=== PATIENT | female | born 1930 | race Caucasian/White ===

== ENCOUNTER 2018-11-05 07:49 | Emergency (ER) | payer MEDICARE ==
--- NOTE | 2018-11-05 08:18 | ERPHSYRPT ---
- History of Present Illness Time Seen by Provider: 11/05/18 08:12 Patient Subjective Stated Complaint: Congestion Triage Nursing Assessment: Patient brought back to ED via w/c and transferred to bed with assist of 1. Patient A+O X 3. Patient's skin flushed, warm and dry. Patient complains of congestion since Wednesday. Patient states she is having a productive cough with thick yellow/green sputum. Patient's lung's clear a/p hiram. Patient denies sob or pain. Physician History: This is an 88-year-old white female with history of high blood pressure, arthritis, irregular heartbeat. She arrives with complaint of a cough congestion symptoms since Wednesday she is not complaining of being short of breath. She has no chest pain no nausea no vomiting She does not have a fever at home. Past medical history blood pressure, arthritis, irregular heartbeat Past surgical history includes cholecystectomy, appendectomy hysterectomy, left knee arthroplasty, tonsillectomy. Social history patient denies tobacco alcohol or illicit drug use Timing/Duration: day(s) (3 days) Severity: moderate Modifying Factors: Improves With: nothing Associated Symptoms: cough, No nausea, No vomiting, No abdominal pain, No shortness of breath, No heartburn, No diaphoresis, No chills, No chest pain, No fever, No headaches, No loss of appetite, No malaise, No rash, No syncope, No seizure, No weakness Allergies/Adverse Reactions: tuberculin, purified protein deriva [Tuberculin,Purif.Prot.Deriv.] Allergy ( Verified 11/05/18 07:53) Home Medications: Aspirin [Baby Aspirin] 81 mg PO DAILY 10/23/12 [History] Calcium Carbonate [Caltrate 600] 600 mg PO BID 10/23/12 [History] Enalapril Maleate 20 mg PO DAILY 10/23/12 [History] Naproxen 500 mg [Naprosyn 500 MG] 500 mg PO BID 10/23/12 [History] Potassium Chloride 10 Meq Tab* [Klor Con 10 MEQ] 10 meq PO DAILY 10/23/12 [ History] Verapamil HCl [Verapamil ER] 120 mg PO DAILY 10/23/12 [History] Hydrochlorothiazide 25 mg [hydroDIURIL 25 MG] 25 mg PO DAILY 10/24/12 [ History] Hx Influenza Vaccination/Date Given: Yes Hx Pneumococcal Vaccination/Date Given: Yes Immunizations Up to Date: Yes - Review of Systems Constitutional: No Fever, No Chills Eyes: No Symptoms Ears, Nose, & Throat: No Symptoms Respiratory: Cough, Other (chest congestion), No Dyspnea Cardiac: No Chest Pain, No Edema, No Syncope Abdominal/Gastrointestinal: No Abdominal Pain, No Nausea, No Vomiting, No Diarrhea Genitourinary Symptoms: No Dysuria Musculoskeletal: No Back Pain, No Neck Pain Skin: No Rash Neurological: No Dizziness, No Focal Weakness, No Sensory Changes Psychological: No Symptoms Endocrine: No Symptoms All Other Systems: Reviewed and Negative - Past Medical History Pertinent Past Medical History: Yes Neurological History: No Pertinent History ENT History: No Pertinent History Cardiac History: Hypertension Respiratory History: No Pertinent History Endocrine Medical History: No Pertinent History Musculoskeletal History: Arthritis GI Medical History: No Pertinent History History: No Pertinent History Psycho-Social History: No Pertinent History Female Reproductive Disorders: No Pertinent History Other Medical History: heart palpitations - Past Surgical History Past Surgical History: Yes Neuro Surgical History: No Pertinent History Cardiac: No Pertinent History Respiratory: No Pertinent History Gastrointestinal: Appendectomy, Cholecystectomy Genitourinary: No Pertinent History Musculoskeletal: Orthopedic Surgery, Prosthesis Female Surgical History: Hysterectomy Other Surgical History: LEFT KNEE, tonsils - Social History Smoking Status: Never smoker How long have you smoked: 20 Exposure to second hand smoke: No Drug Use: none Patient Lives Alone: Yes - Female History Hx Last Menstrual Period: Hysterectomy Hx Now: No - Nursing Vital Signs Nursing Vital Signs: Initial Vital Signs Temperature 100.6 F 11/05/18 07:55 Pulse Rate 110 H 11/05/18 07:55 Respiratory Rate 20 11/05/18 07:55 Blood Pressure 121/86 11/05/18 07:55 O2 Sat by Pulse Oximetry 94 L 11/05/18 07:55 Pain Scale Pain Intensity 0 - Physical Exam General Appearance: no apparent distress, alert Eye Exam: PERRL/EOMI, eyes nml inspection Ears, Nose, Throat Exam: normal ENT inspection, TMs normal, pharynx normal, moist mucous membranes Neck Exam: normal inspection, non-tender, supple, full range of motion Respiratory Exam: normal breath sounds, lungs clear, No respiratory distress Cardiovascular Exam: irregular, capillary refill <2 sec, other (heart irregularly irregular) Gastrointestinal/Abdomen Exam: soft, normal bowel sounds, No tenderness, No mass Back Exam: normal inspection, normal range of motion, No CVA tenderness, No vertebral tenderness Extremity Exam: normal inspection, normal range of motion, pelvis stable Neurologic Exam: alert, oriented x 3, cooperative, shank faker II-XII nml as tested, normal mood/affect, nml cerebellar function, nml station & gait, sensation nml, No motor deficits Skin Exam: normal color, warm, dry, No rash Lymphatic Exam: No adenopathy (94%) SpO2: 94 - Course Nursing assessment & vital signs reviewed: Yes EKG Interpreted by Me: RATE (82 bpm), A-fib, NORMAL AXIS (SI/QIII pattern), Other (EKG: Atrial fibrillation, 82 beats per minute, axis S1/QIII pattern no acute ST or T wave changes) - Radiology Exams Chest X-ray Interpretation: Interpreted by me (right basilar infiltrate) Ordered Tests: Active Orders 24 hr Category Date Time Status EKG-ER Only STAT Care 11/05/18 08:09 Active IV Insertion STAT Care 11/05/18 08:09 Active CHEST 1 VIEW (PORTABLE) Stat Exams 11/05/18 08:09 Taken BLOOD CULTURE Stat Lab 11/05/18 08:35 Received CBC W DIFF Stat Lab 11/05/18 08:35 Completed CMP Stat Lab 11/05/18 08:35 Completed Lactic Acid Stat Lab 11/05/18 08:09 Completed NT PRO BNP Stat Lab 11/05/18 08:11 Completed Medication Summary Generic Name Dose Route Start Last Admin Trade Name Freq PRN Reason Stop Dose Admin Ceftriaxone Sodium/Dextrose 1 g in 50 mls @ 100 mls/hr 11/05/18 09:43 Rocephin 1 Gm-D5w 50 Ml Bag IV 11/05/18 10:12 STAT STA Lab/Rad Data: Laboratory Result Diagrams 11/05/18 08:35 11/05/18 08:35 Laboratory Results 11/05/18 11/05/18 11/05/18 Range/Units 08:35 08:35 08:11 WBC 10.6 H (4.0-10.5) K/mm3 RBC 4.05 L (4.1-5.4) M/mm3 Hgb 12.7 (12.0-16.0) gm/dl Hct 39.6 (35-47) % MCV 97.8 (78-100) fl MCH 31.3 (26-32) pg MCHC 32.1 (32-36) g/dl RDW 13.2 (11.5-14.0) % Plt Count 181 (150-450) K/mm3 MPV 11.4 H (6-9.5) fl Gran % 80.2 H (36.0-66.0) % Eos # (Auto) 0.05 (0-0.5) Absolute Lymphs (auto) 0.93 L (1.0-4.6) Absolute Monos (auto) 1.11 (0.0-1.3) Lymphocytes % 8.7 L (24.0-44.0) % Monocytes % 10.4 (0.0-12.0) % Eosinophils % 0.5 (0.00-5.0) % Basophils % 0.2 (0.0-0.4) % Absolute Granulocytes 8.53 H (1.4-6.9) Basophils # 0.02 (0-0.4) Sodium 138 (137-145) mmol/L Potassium 4.2 (3.5-5.1) mmol/L Chloride 96 L (98-107) mmol/L Carbon Dioxide 33 H (22-30) mmol/L Anion Gap 13.7 (5-15) MEQ/L BUN 14 (7-17) mg/dL Creatinine 0.63 (0.52-1.04) mg/dL Estimated GFR > 60.0 ML/MIN Glucose 136 H (74-106) mg/dL Lactic Acid (0.4-2.0) Calcium 9.3 (8.4-10.2) mg/dL Total Bilirubin 1.00 (0.2-1.3) mg/dL AST 40 H (14-36) U/L ALT 17 (0-35) U/L Alkaline Phosphatase 82 (38-126) U/L NT-Pro-B Natriuret Pep 2520 H (0-1800) pg/mL Serum Total Protein 7.5 (6.3-8.2) g/dL Albumin 3.8 (3.5-5.0) g/dL 11/05/18 Range/Units 08:09 WBC (4.0-10.5) K/mm3 RBC (4.1-5.4) M/mm3 Hgb (12.0-16.0) gm/dl Hct (35-47) % MCV (78-100) fl MCH (26-32) pg MCHC (32-36) g/dl RDW (11.5-14.0) % Plt Count (150-450) K/mm3 MPV (6-9.5) fl Gran % (36.0-66.0) % Eos # (Auto) (0-0.5) Absolute Lymphs (auto) (1.0-4.6) Absolute Monos (auto) (0.0-1.3) Lymphocytes % (24.0-44.0) % Monocytes % (0.0-12.0) % Eosinophils % (0.00-5.0) % Basophils % (0.0-0.4) % Absolute Granulocytes (1.4-6.9) Basophils # (0-0.4) Sodium (137-145) mmol/L Potassium (3.5-5.1) mmol/L Chloride (98-107) mmol/L Carbon Dioxide (22-30) mmol/L Anion Gap (5-15) MEQ/L BUN (7-17) mg/dL Creatinine (0.52-1.04) mg/dL Estimated GFR ML/MIN Glucose (74-106) mg/dL Lactic Acid 1.3 (0.4-2.0) Calcium (8.4-10.2) mg/dL Total Bilirubin (0.2-1.3) mg/dL AST (14-36) U/L ALT (0-35) U/L Alkaline Phosphatase (38-126) U/L NT-Pro-B Natriuret Pep (0-1800) pg/mL Serum Total Protein (6.3-8.2) g/dL Albumin (3.5-5.0) g/dL - Progress Progress: improved Progress Note: 11/05/18 09:47 88-year-old white female arrives with complaint of a cough for 4 days. She is really not short of breath no chest pain Patient does have a history of atrial fibrillation patient's chest x-ray is remarkable for increased markings right lower lung suspicious for early infiltrate. Patient lactate 1.3 CBC white blood cell 10.6 hemoglobin 12.7 hematocrit 39.6 platelets 181 patient BNP is a mildly elevated at 2520 troponin within normal limits chemistry sodium 138 potassium 4.2 chloride 96 bicarbonate 33 BUN 14 creatinine 0.63 glucose 136 EKG remarkable for atrial fibrillation no acute ST or T wave changes. Will go ahead and discharge patient after giving patient Rocephin 1 g IV. Will plan on Zithromax at home patient to followup with her family . 11/05/18 09:52 Chest x-ray reading by radiologist impression: 1. Chronic interstitial changes chronic bronchiectasis lower lungs. 2. Rounded density right upper lobe favor summation of densities. Consider further followup chest to insure stability or assess for resolution. Patient is coughing yellow sputum will go ahead and treat with Rocephin and Zithromax as noted above. - Departure Departure Disposition: Home Clinical Impression: Cough Bronchiectasis Qualifiers: Bronchiectasis type: with acute exacerbation Qualified Code(s): J47.1 - Bronchiectasis with (acute) exacerbation Condition: Fair Critical Care Time: No Referrals: BRENT RIDER MD [Primary Care Provider] - Instructions: Pneumonia, Adult (DC) Additional Instructions: Return home. Zithromax as prescribed. Followup with your family At your scheduled appointment sooner if any problems. Return for acute distress severe symptoms or for any problems. Prescriptions: Azithromycin 250 mg [Zithromax 250 MG TABLET] 0 mg PO ZPACK #6 tablet
[2018-11-05 09:01] LABS: BASOPHIL % 0.2 % (0.0-0.4); Basophil (Absolute #) 0.02 (0-0.4); Eosinophil % 0.5 % (0.00-5.0); Eosinophil (Absolute #) 0.05 (0-0.5); Granulocyte Absolute (ANC) 8.53 (1.4-6.9); Granulocytes % 80.2 % (36.0-66.0); Hematocrit 39.6 % (35-47); Hemoglobin 12.7 gm/dl (12.0-16.0); Lymphocyte (Absolute #) 0.93 (1.0-4.6); Lymphocytes % 8.7 % (24.0-44.0); Mean Cell Volume 97.8 fl (78-100); Mean Corpuscular Hgb Concent. 32.1 g/dl (32-36); Mean Platelet Volume 11.4 fl (6-9.5); Monocyte (Absolute #) 1.11 (0.0-1.3); Monocytes % 10.4 % (0.0-12.0); Platelet Count 181 K/mm3 (150-450); Red Blood Count 4.05 M/mm3 (4.1-5.4); Red Cell Distribution Width 13.2 % (11.5-14.0); White Blood Count 10.6 K/mm3 (4.0-10.5)
[2018-11-05 09:03] LABS: ALBUMIN 3.8 g/dL (3.5-5.0); ALKALINE PHOSPHATASE 82 U/L (38-126); ANION GAP 13.7 MEQ/L (5-15); BLOOD UREA NITROGEN 14 mg/dL (7-17); CHLORIDE 96 mmol/L (98-107); Calcium 9.3 mg/dL (8.4-10.2); Carbon Dioxide 33 mmol/L (22-30); Creatinine 1 0.63 mg/dL (0.52-1.04); Glucose 136 mg/dL (74-106); Potassium 4.2 mmol/L (3.5-5.1); SGOT/AST 40 U/L (14-36); SGPT/ALT 17 U/L (0-35); SODIUM 138 mmol/L (137-145); Total Protein 7.5 g/dL (6.3-8.2)
[2018-11-05 09:06] LABS: Mean Corpuscular Hemoglobin 31.3 pg (26-32)
[2018-11-05] MEDS ORDERED: ROCEPHIN 1 Gm-D5w 50 ml Bag** 1 G/50 ML IVPB IV STA (09:43)
[2018-11-05] MEDS ORDERED: ROCEPHIN 1 Gm-D5w 50 ml Bag** 1 G/50 ML IVPB IV ONE (09:52)
[2018-11-05 10:46] VITALS: BP 109/71; PULSE 107; O2SAT 92
--- NOTE | 2018-11-05 20:15 | XRAY ---
Indication: Cough and congestion. Comparison: None Portable apical lordotic chest demonstrates chronic interstitial lung markings and left lung calcified granulomas. No focal infiltrate, consolidation, or large effusion. Heart is not enlarged for AP portable technique. Right hemidiaphragm focal eventration. Bony thorax intact with mild osteopenia and degenerative changes. Impression: Nonacute chest with chronic features. Comment: Preliminary interpretation was made by [facility]. No critical discrepancy.
== END 2018-11-05 10:45 | disposition home or self-care (01) ==
LOC: ED 07:49
DX: R05 Cough (principal); J47.1 Bronchiectasis with (acute) exacerbation; I48.91 Unspecified atrial fibrillation; I10 Essential (primary) hypertension; Z79.899 Other long term (current) drug therapy; M19.90 Unspecified osteoarthritis, unspecified site
CPT/HCPCS: 36000; 36415; 71045; 80053; 83605; 83880; 85025; 87040; 93005; 96365; 99284; J0696